=== PATIENT | male | born 2000 | race Caucasian/White ===

== ENCOUNTER 2022-08-06 16:54 | Emergency (ER) | payer SELFPAY ==
[~2022-08-06] VITALS: Ht 162.6 cm; Wt 59.0 kg
[2022-08-06] MEDS ORDERED: IBUPROFEN 400MG TABLET PO ONE (19:30)
[2022-08-06] MEDS ORDERED: ACETAMINOPHEN 325MG TABLET PO ONE (19:30)
[2022-08-06 20:07] VITALS: BP 124/78
[2022-08-06] MEDS ORDERED: IBUP-2028 MT (20:52)
== END 2022-08-06 21:47 | disposition home or self-care (01) ==
LOC: ER 16:54
DX: J02.9 Acute pharyngitis, unspecified (principal); R05.9 Cough, unspecified
CPT/HCPCS: 87070; 87430; 99283